=== PATIENT | male | born 1955 | race Two or more races ===

== ENCOUNTER 2017-05-30 18:28 | Emergency (ER) | payer MEDICAID ==
--- NOTE | ~2017-05-30 | ER ---
PATIENT'S NAME: ALLI ORTEZ [facility] AGE: 62 Y [address] ROOM: [place] [address] LOCATION: ED ADMIT DATE: 05/30/2017 ER/Outpatient Report DISCHARGE DATE: 05/30/2017 FAMILY PHYSICIAN: Julian Montano MD ATTENDING PHYSICIAN: David Baldwin Time of Arrival: 1828 hours. Time of Evaluation: 1920 hours. CHIEF COMPLAINT: Urinary retention. HISTORY OF PRESENT ILLNESS: The patient is a 62-year-old male, who presents to the emergency department today with chief complaint of urinary retention. He reports this started about 1 day prior to arrival. It has progressively gotten worse. The patient does report he is scheduled for prostate surgery with Dr. Berry on Thursday. The pain is currently 3/10 to 4/10 in severity. He is having troubles completely emptying. Denies any other urinary frequency, urgency, or painful urination. Denies any fevers or chills. No nausea or vomiting. No diarrhea or constipation. No blood in his urine. The patient has been on Levaquin. PAST MEDICAL HISTORY: Hypertension and gout. PAST SURGICAL HISTORY: Prostate and ankle. SOCIAL HISTORY: The patient quit smoking in 2013. Denies any alcohol or illicit drug use. ALLERGIES: NO KNOWN DRUG ALLERGIES. MEDICATIONS: Please see list. PRIMARY CARE DOCTOR: Dr. Julian Montano. REVIEW OF SYSTEMS: All systems are reviewed by myself and are negative with the exception of those discussed in HPI and past medical history. PHYSICAL EXAMINATION: PATIENT'S NAME: ALLI ORTEZ [facility] AGE: 62 Y [address] ROOM: [place] [address] LOCATION: ED ADMIT DATE: 05/30/2017 ER/Outpatient Report DISCHARGE DATE: 05/30/2017 FAMILY PHYSICIAN: Julian Montano MD ATTENDING PHYSICIAN: David Baldwin VITAL SIGNS: Weight 99.8 kg. Blood pressure 166/93, pulse 82, respiratory rate 18, temperature 98, and oxygen saturation 95% on room air. GENERAL: The patient is a 62-year-old male, who appears his stated age, in mild acute distress. HEENT: Normocephalic, atraumatic. Pupils are equal, round, and reactive to light and accommodation. Extraocular motions are intact. Nares are patent bilaterally. TMs are clear. Oropharynx is clear. NECK: Supple. There is no nuchal rigidity. CARDIOVASCULAR: Regular rate and rhythm. No murmurs, rubs, or gallops. LUNGS: Clear to auscultation bilaterally. No wheezes, rales, or rhonchi. ABDOMEN: Soft, nontender, and nondistended. No rebound, rigidity, or guarding. MUSCULOSKELETAL: The patient moves all 4 extremities. SKIN: Warm and dry. No rashes or lesions noted. LABORATORY DATA AND X-RAYS: Urinalysis is unremarkable. IMPRESSION: 1. Acute urinary retention. 2. Initial visit. EMERGENCY DEPARTMENT COURSE: The patient was brought back to the examination room. Seen and evaluated by myself. A Clayton catheter was placed. Urinalysis was obtained. The results are unremarkable. I have recommended the patient continue his Levaquin as prescribed. Urine culture was sent. I have discussed following up with Dr. Berry as scheduled for surgery. I have discussed the jhjdta-bf-[id number] instructions including worsening symptoms or other concerns, to return to the emergency department as soon as possible. The patient is agreeable without further questions at this time. DISPOSITION: The patient is discharged to home in good condition. DO ARNEL CAMACHO/modl /[id number] d: 05/31/17 0241 t: 06/02/17 1816, OUTPATIENT REPORT
[~2017-05-30 18:28] MED LIST: ADVIL200 MG PO; ASPIRIN LO-DOSE81 MG PO; BAC/NEO/POLY O3.5 GM TOP; FLOMAX0.4 MG PO; HYDRODIURIL25 MG PO; LEVAQUIN500 MG PO; MIRALAX17 GM PO; PRILOSEC20 MG PO; TYLENOL325 MG PO; ZESTRIL40 MG PO
[2017-05-30 20:21] LABS: BILIRUBIN URINE NEGATIVE (NEGATIVE); BLOOD URINE NEGATIVE /UL (NEGATIVE); COLOR URINE YELLOW (YELLOW); GLUCOSE URINE NEGATIVE (NEGATIVE); KETONE URINE NEGATIVE (NEGATIVE); LEUKOCYTES URINE NEGATIVE /UL (NEGATIVE); NITRITE URINE NEGATIVE (NEGATIVE); PROTEIN URINE 15 mg/dL (NEGATIVE); SPEC GRAVITY URINE 1.015 (1.003-1.035); TURBIDITY URINE CLEAR (CLEAR); UROBILINOGEN URINE NORMAL (NORMAL)
[2017-05-30 20:48] LABS: AMORPHOUS URINE 1+ (NEGATIVE); BACTERIA URINE NEGATIVE (NEGATIVE); EPITHELIAL URINE 0-2 #/HPF (NEGATIVE); RBC URINE RARE #/HPF (NEGATIVE); WBC URINE 0-2 #/HPF (NEGATIVE)
== END 2017-05-30 20:41 | disposition disaster alternative care site (69) ==
LOC: GMED 18:28
PROVIDERS: Emergency Medicine
PROC: 0T9B70Z Drainage of Bladder with Drainage Device, Via Natural or Artificial Opening (ICD-10-PCS; principal; 2017-05-30)
PROC: 4A0 Measurement and Monitoring, Physiological Systems, Measurement (ICD-10-PCS; 2017-05-30)
DX: R33.9 Retention of urine, unspecified (principal); I10 Essential (primary) hypertension; Z79.82 Long term (current) use of aspirin; Z79.899 Other long term (current) drug therapy; Z98.890 Other specified postprocedural states; Z87.891 Personal history of nicotine dependence

== ENCOUNTER 2017-05-31 17:07 | Emergency (ER) | payer MEDICAID ==
--- NOTE | ~2017-05-31 | ER ---
PATIENT'S NAME: ALLI ORTEZ [facility] AGE: 62 Y [address] ROOM: [place], [place] [address] LOCATION: [facility] ADMIT DATE: 05/31/2017 ER/Outpatient Report DISCHARGE DATE: 05/31/2017 FAMILY PHYSICIAN: Julian Montano MD ATTENDING PHYSICIAN: Mari Weems Time of Arrival: 1727 hours. Time of Exam: 1735 hours. CHIEF COMPLAINT: Clayton catheter not working. HISTORY OF PRESENT ILLNESS: The patient states approximately 2-3 hours prior to arrival his Clayton catheter quit working. He states he has had some bloody-type discharge from it throughout the day today, it was placed last night for urinary retention. He states he is scheduled to have a prostate surgery tomorrow. He feels as though the catheter is leaking around the Y-site, it is not quite sure what is causing it to leak, but he is feeling fullness in his bladder also. He has not had a fever. Has not had any nausea or vomiting. ALLERGIES: NO KNOWN ALLERGIES. CURRENT MEDICATIONS: On his chart and were reviewed by me. PAST MEDICAL HISTORY: Hypertension, osteoarthritis, and benign prostatic hypertrophy. PAST SURGERIES: Right ankle surgery due to trauma in September. He had a partial transurethral prostatectomy. SOCIAL HISTORY: He denies use of tobacco, drugs, or alcohol. He reports his primary provider is Dr. Montano. The surgery tomorrow is scheduled with Dr. Berry. REVIEW OF SYSTEMS: All negative other than those mentioned in the HPI. PHYSICAL EXAMINATION: VITAL SIGNS: He weighed 96.8 kg. Blood pressure is 149/84, pulse of 104, respirations 18, temperature of 99 tympanic, and O2 saturations 96% on room air. PATIENT'S NAME: ALLI ORTEZ [facility] AGE: 62 Y [address] ROOM: [place], [place] [address] LOCATION: [facility] ADMIT DATE: 05/31/2017 ER/Outpatient Report DISCHARGE DATE: 05/31/2017 FAMILY PHYSICIAN: Julian Montano MD ATTENDING PHYSICIAN: Mari Weems GENERAL: He is awake, alert, and oriented x4. SKIN: [place], warm, and dry. RESPIRATIONS: Even and nonlabored. Lung sounds were clear throughout. HEART: Regular rate and rhythm. ABDOMEN: Soft and nondistended. Bowel sounds are present. MUSCULOSKELETAL: He walks in with a steady even gait. GENITOURINARY: He does have the Clayton catheter in place. There is no urine in the bag at this time. The patient states he emptied it right before he came in. It does appear to be leaking urine around the meatal opening. Bladder scan was completed, it shows greater than 410 mL. EMERGENCY ROOM COURSE: Clayton catheter was irrigated with sterile saline, does not return any drainage. The catheter was then removed and a new 16-Chinese Clayton catheter was inserted. A Uro-jet lidocaine was used. No difficulty was obtained. Initially, he had some clots, drained 450 mL of fluid. As it continued to drain the fluid, did become clearer in color, clear yellow. The patient tolerated the procedure well. Denies having any pain or discomfort in the lower abdominal area. IMPRESSION: 1. Urinary retention. 2. Hematuria. PLAN: Home, rest. Leave the Clayton catheter in place. Follow up tomorrow with Dr. Berry as scheduled. The patient verbalized understanding. CHIDI VELAZQUEZ APRN FOR MD NASREEN SHELDON/hermila /[id number] d: 05/31/171922 t: 06/03/17906, OUTPATIENT REPORT
== END 2017-05-31 18:16 | disposition disaster alternative care site (69) ==
LOC: GMED 17:07
DX: N40.1 Benign prostatic hyperplasia with lower urinary tract symptoms (principal); R33.9 Retention of urine, unspecified; R31.9 Hematuria, unspecified; I10 Essential (primary) hypertension; M19.90 Unspecified osteoarthritis, unspecified site; Z98.890 Other specified postprocedural states; Z90.79 Acquired absence of other genital organ(s); Z79.899 Other long term (current) drug therapy

== ENCOUNTER 2017-06-01 05:11 | Observation (INO) | payer MEDICAID ==
[~2017-06-01] VITALS: Ht 180.3 cm; Wt 94.2 kg
--- NOTE | ~2017-06-01 | OR ---
PATIENT'S NAME: ALLI ORTEZ [facility] AGE: 62 Y [address] ROOM: [place] [address] LOCATION: [facility] ADMIT DATE: 06/01/2017 OR/Procedure Report DISCHARGE DATE: FAMILY PHYSICIAN: SARAHY MONTANO MD ATTENDING PHYSICIAN: GLORY BERRY SURGEON: Glory Berry MD LETTUCE TRIMMER: None. DATE OF PROCEDURE: 06/01/2017 PREOPERATIVE DIAGNOSES: 1. Benign prostatic hyperplasia with bladder outlet obstruction. 2. Urinary retention. 3. Lower urinary tract symptoms including weak urinary stream, urgency, frequency, and nocturia. POSTOPERATIVE DIAGNOSIS: 1. Benign prostatic hyperplasia with bladder outlet obstruction. 2. Urinary retention. 3. Lower urinary tract symptoms including weak urinary stream, urgency, frequency, and nocturia. OPERATIVE PROCEDURES: Transurethral resection of prostate for persistent prostatic obstruction following previous transurethral resection of prostate and with some prostatic regrowth. ANESTHESIA ADMINISTERED: General. INDICATIONS FOR PROCEDURE: The patient is a pleasant, 62-year-old male, who had previously presented with gross hematuria and had underwent clot evacuation, September 22, 2016. At that time, he had persistent bleeding from his median prostatic lobe and required a partial transurethral resection of prostate of the median intravesical lobe at the time of his clot evacuation. The patient has had persistent lower urinary tract symptoms and difficulty with emptying his bladder. Actually, he had presented to the emergency room over the weekend in acute urinary retention requiring placement of indwelling Clayton catheter. The patient was explained the risks, benefits, indications, and alternatives to the above procedure and wished to proceed and consented freely. DESCRIPTION OF OPERATION: The patient was brought back to the operating room, where he was placed on the OR table in the supine position. A surgical time- out was called, where patient identification, surgical site, and procedure was then verified. We also did verify that the patient received an IV Levaquin antibiotic within an hour of beginning the procedure. The patient underwent successful administration of general endotracheal anesthesia. The patient was PATIENT'S NAME: ALLI ORTEZ [facility] AGE: 62 Y [address] ROOM: [place] [address] LOCATION: [facility] ADMIT DATE: 06/01/2017 OR/Procedure Report DISCHARGE DATE: FAMILY PHYSICIAN: SARAHY MONTANO MD ATTENDING PHYSICIAN: GLORY BERRY then moved and placed in a low lithotomy position. His genital area was then prepped and draped in the usual sterile fashion. I then carefully advanced the resectoscope using the visual obturator in to the patient's bladder. The patient did have significant obstruction including severe bilobar hyperplasia of the prostate. His bladder was negative for any bladder tumors, cellules, or diverticula. He did have findings consistent with hjcoblwx-dr-uolaoj bladder trabeculation. His ureteral orifices were noted to be in their orthotopic location. I then used the resectoscope loop, began performing transurethral resection of prostate, starting with his left lateral lobe, and resecting from base to apex, taking care to preserve the verumontanum, and not resect distal to this to preserve his urethral sphincter. Once I was complete with the left lateral lobe, it did appear that he had some dfgc-yr-pjocopvk regrowth and persistent obstruction at the bladder neck and I resected this down to his bladder neck. I then began resecting his right lateral lobe resecting from base to apex, again taking care to preserve the verumontanum. Once I was complete, I did have an open channel. He did have significant prostate size and given the operative procedure length, I concluded the procedure and there did appear to be potentially some more prostate tissue there to resect but given some bleeding, I did not want to keep him on the operating room table any longer. I did then went back over the prostatic bed and carefully cauterized the entire prostatic urethra where I had resected in and hemostasis did appear to be improving now. I did evacuate all of the resection specimen and was sent for pathologic analysis. I then removed the resectoscope and placed a 24-Bengali 3-way Clayton catheter with 30 mL of sterile water in the balloon and this was placed to continuous bladder irrigation with a light pink output with the irrigation going. The patient was then taken out of the lithotomy position where he was then awoken from general anesthesia, extubated, then transferred to the recovery bed, and transported to the recovery room in good condition. The patient did tolerate the procedure well. COMPLICATIONS: None. ESTIMATED BLOOD LOSS: Less than 50 mL. SPECIMENS: Transurethral resection of prostate. Specimen for pathologic analysis. DRAINS: Indwelling 24-Bengali 3-way Clayton catheter to continuous bladder irrigation. FOLLOWUP PLAN: We plan to keep the patient overnight for observation and to wean him off the irrigation. PATIENT'S NAME: ALLI ORTEZ [facility] AGE: 62 Y [address] ROOM: [place] [address] LOCATION: [facility] ADMIT DATE: 06/01/2017 OR/Procedure Report DISCHARGE DATE: FAMILY PHYSICIAN: SARAHY MONTANO MD ATTENDING PHYSICIAN: GLORY BERRY GLORY BERRY MD GP/modl /[id number] CC: Sarahy Montano MD d: 06/01/17 1222 t: 06/01/17 1446, OPERATIVE SUMMARY
--- NOTE | ~2017-06-01 | DS ---
PATIENT'S NAME: ALLI ORTEZ [facility] AGE: 62 Y [address] ROOM: [place] [address] LOCATION: [facility] [place] ADMIT DATE: 06/01/2017 Discharge Summary DISCHARGE DATE: 06/03/2017 FAMILY PHYSICIAN: Julian Montano MD ATTENDING PHYSICIAN: Glory An ADMISSION DIAGNOSES: 1. Benign prostatic hypertrophy with bladder outlet obstruction. 2. Urinary retention. DISCHARGE DIAGNOSES: 1. Benign prostatic hypertrophy with bladder outlet obstruction. 2. Urinary retention. HOSPITAL COURSE: The patient was admitted on the above date and underwent a transurethral resection of the prostate. Prior to the patient's discharge, we have been able to wean him off the irrigation, and his pain is well controlled. We will plan for him to follow back up tomorrow for catheter removal and a trial of void. DISCHARGE CONDITION: Stable. FOLLOWUP PLAN: As above. OPERATIVE PROCEDURES: Transurethral resection of the prostate. GLORY AN MD GP/modl /[id number] d: 06/03/17 1312 t: 06/05/17 0639, DISCHARGE SUMMARY
[2017-06-01 05:57] LABS: BASOPHIL % 0.2 %; EOSINOPHIL # 0.1 K/uL (0.0-0.5); EOSINOPHIL % 0.9 %; HEMATOCRIT 45.5 % (37.0-53.0); HEMOGLOBIN 15.7 g/dL (11.0-16.0); IMMATURE GRANULOCYTE % 0.3 %; LYMPHOCYTE # 1.6 K/uL (0.8-4.0); LYMPHOCYTE % 15.8 %; MCH 30.5 pg (27.0-34.0); MCHC 34.5 gm/dL (32.0-36.5); MCV 88.3 fl (83.0-98.0); MONOCYTE # 1.2 K/uL (0.0-1.0); MPV 9.7 fl (9.4-12.4); NEUTROPHIL # (ANC) 7.1 K/uL (1.4-9.0); NEUTROPHIL % 70.8 %; NRBC % 0 /100WBC (0-0.00); PLATELET COUNT 194 K/uL (150-450); RBC 5.15 M/uL (3.50-5.50); RDW-CV 14.5 % (11.9-14.6)
[2017-06-01 06:25] LABS: ALBUMIN 3.8 gm/dL (3.5-5.0); ANION GAP 11.7 (10.0-19.0); CREATININE 1.5 mg/dL (0.6-1.3); POTASSIUM 3.7 mMol/L (3.7-5.1); TOTAL BILIRUBIN 1.3 mg/dL (0.0-1.5); TOTAL PROTEIN 7.6 g/dL (6.0-8.4)
[2017-06-02 05:36] LABS: BASOPHIL % 0.1 %; EOSINOPHIL # 0.1 K/uL (0.0-0.5); EOSINOPHIL % 1.4 %; HEMATOCRIT 38.3 % (37.0-53.0); HEMOGLOBIN 13.2 g/dL (11.0-16.0); IMMATURE GRANULOCYTE % 0.3 %; LYMPHOCYTE # 1.3 K/uL (0.8-4.0); LYMPHOCYTE % 13.2 %; MCH 30.8 pg (27.0-34.0); MCHC 34.5 gm/dL (32.0-36.5); MCV 89.5 fl (83.0-98.0); MONOCYTE # 1.2 K/uL (0.0-1.0); MONOCYTE % 12.5 %; NEUTROPHIL # (ANC) 6.9 K/uL (1.4-9.0); NEUTROPHIL % 72.5 %; NRBC % 0 /100WBC (0-0.00); PLATELET COUNT 173 K/uL (150-450); RBC 4.28 M/uL (3.50-5.50); RDW-CV 14.6 % (11.9-14.6); WBC 9.5 K/uL (4.0-11.0)
[2017-06-02 05:49] LABS: CALCIUM 8.8 mg/dL (8.5-10.5); CREATININE 1.2 mg/dL (0.6-1.3)
[2017-06-03] MEDS ORDERED: COLACE100 MG PO (09:47)
[2017-06-03] MEDS ORDERED: NEOSPORIN1 PKT TOP (09:49)
[2017-06-03] MEDS ORDERED: NORCO 5-325 TA1 EACH PO (09:53)
== END 2017-06-03 11:20 | disposition disaster alternative care site (69) ==
LOC: GMSU 05:11 → GSDC 05:11 → GMSU 05:12 → GSDC 11:16 → GMSU 06-03 11:20
PROVIDERS: ADMIT Urology
PROC: 0VT08ZZ Resection of Prostate, Via Natural or Artificial Opening Endoscopic (ICD-10-PCS; principal; 2017-06-01)
DX: N40.1 Benign prostatic hyperplasia with lower urinary tract symptoms (principal); N13.8 Other obstructive and reflux uropathy; R33.8 Other retention of urine; R35.0 Frequency of micturition; R39.15 Urgency of urination; R39.12 Poor urinary stream; I10 Essential (primary) hypertension; K21.9 Gastro-esophageal reflux disease without esophagitis; Z79.899 Other long term (current) drug therapy; Z98.890 Other specified postprocedural states
CPT/HCPCS: J0690; J1956; J2001; J7120